=== PATIENT | male | born 1930 | race Caucasian/White ===

== ENCOUNTER 2017-08-11 08:03 | Emergency (ER) | payer MEDICARE, BC ==
[2017-08-11 08:28] LABS: #Eosinphils 0.1 thou/uL (0.0-0.7); #Monocytes 0.5 thou/uL (0.11-0.59); #Neutrophils 5.4 thou/uL (1.40-6.50); %Basophils 0.1 % (0.0-1.0); %Eosinophils 1.5 % (0.0-10.0); %Lymphocytes 14.8 % (21.0-51.0); %Monocytes 6.4 % (0.0-10.0); %Neutrophils 77.2 % (42.0-75.0); Hemoglobin 14.4 g/dL (14.0-18.0); Mean Corpuscular HGB CONC 32.3 g/dL (32.0-36.0); Mean Corpuscular Hemoglobin 28.5 pg (27.0-31.0); Mean Corpuscular Volume 88.1 fl (80.0-94.0); Mean Platelet Volume 8.6 fL (7.4-10.4); Platelet Count 151 thou/uL (130-400); Red Blood Cell (RBC) Count 5.06 mill/uL (4.70-6.10); White Blood Cell (WBC) Count 6.9 thou/uL (4.8-10.8)
[2017-08-11 08:46] LABS: ALT (SGPT) 11 U/L (8-55); AST (SGOT) 13 U/L (5-34); Albumin 3.8 g/dL (3.4-4.8); Alkaline Phosphatase 89 U/L (40-150); Anion Gap 11 mmol/L (10-20); BUN (Urea Nitrogen) 34 mg/dL (8.4-25.7); Bilirubin, Total 0.7 mg/dL (0.2-1.2); Calc. Creatinine Clearance 0 mL/min (70-130); Calcium 10.4 mg/dL (7.8-10.44); Carbon Dioxide 26 mmol/L (23-31); Chloride 108 mmol/L (98-107); Estimated GFR-MDRD 45; Globulin 3.1 g/dL (2.4-3.5); Glucose 173 mg/dL (83-110); Protein, Total 6.9 g/dL (5.8-8.1); Sodium 140 mmol/L (136-145)
[2017-08-11 08:51] LABS: Troponin I 0.138 ng/mL (< 0.028)
[2017-08-11] MEDS ORDERED: Enoxaparin Sodium 80 MG/0.8 ML SYRINGE ONE (09:18)
--- NOTE | 2017-08-11 09:26 | RAD ---
CHEST 1 VIEW: Date: 08/11/17 HISTORY: Pain. COMPARISON: None. FINDINGS: Portable upright chest demonstrates a left-sided transvenous defibrillator with lead position in righ t atrium, right ventricle, and coronary sinus. There is atherosclerosis of aorta. Heart is enlarged. Pulmonary vessels are within normal limits. Chronic changes in the lung parenchyma are suspected. No consolidation or mass. No pneumothorax or osseous abnormalities. IMPRESSION: 1. Atherosclerosis. 2. Cardiomegaly without evidence of congestive heart failure. POS: [facility]
== END 2017-08-11 11:10 | disposition short-term general hospital (02) ==
LOC: ERS 08:03
DX: R07.9 Chest pain, unspecified (principal); R79.89 Other specified abnormal findings of blood chemistry; I48.91 Unspecified atrial fibrillation; I95.9 Hypotension, unspecified; I11.0 Hypertensive heart disease with heart failure; I50.9 Heart failure, unspecified; Z79.891 Long term (current) use of opiate analgesic; Z79.82 Long term (current) use of aspirin; Z79.899 Other long term (current) drug therapy
CPT/HCPCS: 36415; 71045; 80053; 82553; 84484; 85025; 93005; 96360; 96361; 96372; J1650

== ENCOUNTER 2017-12-04 08:24 | Inpatient (IN) | payer MEDICARE, BC ==
[2017-12-04 08:42] LABS: #Lymphocytes 0.9 thou/uL (1.20-3.40); #Monocytes 0.8 thou/uL (0.11-0.59); #Neutrophils 9.4 thou/uL (1.40-6.50); %Eosinophils 0.4 % (0.0-10.0); %Lymphocytes 8.4 % (21.0-51.0); %Monocytes 6.9 % (0.0-10.0); %Neutrophils 84.3 % (42.0-75.0); Hemoglobin 14.1 g/dL (14.0-18.0); Mean Corpuscular HGB CONC 31.8 g/dL (32.0-36.0); Mean Corpuscular Hemoglobin 27.5 pg (27.0-31.0); Mean Corpuscular Volume 86.3 fL (78.0-98.0); Mean Platelet Volume 9.7 fL (7.4-10.4); Platelet Count 254 thou/uL (130-400); RBC Distribution Width 15.9 % (11.5-14.5); Red Blood Cell (RBC) Count 5.12 mill/uL (4.70-6.10); White Blood Cell (WBC) Count 11.1 thou/uL (4.8-10.8)
[2017-12-04] MEDS ORDERED: Magnesium 2 GM/NS 0.9% 100 ML 2 GM in Premix Bag 1 BAG IVPB SCH (08:45)
[2017-12-04 08:50] LABS: INR-International Normal Ratio 1.3; Prothrombin Time 16.5 SEC (12.0-14.7)
--- NOTE | 2017-12-04 08:56 | RAD ---
CHEST 1 VIEW: Date: 12/04/17 HISTORY: Dyspnea. senior care patient. COMPARISON: 08/11/17. FINDINGS: Single view chest demonstrates a stable left-sided defibrillator. Overlying pacing pads are noted. He art is enlarged. Pulmonary vessels are prominent. Chronic changes of the lung parenchyma, without con solidation or mass. Small left-sided effusion or parenchymal changes in the left lung base cannot be excluded. No pneumothorax. Evaluation of left lung apex is limited. IMPRESSION: 1. Atherosclerosis. 2. Enlarged cardiac silhouette with enlarged pulmonary vessels. Correlate for failure. 3. Opacification left lung base suggesting pleural and parenchymal changes. Continue surveillance. POS: [facility]
[2017-12-04 09:04] LABS: ALT (SGPT) 164 U/L (8-55); AST (SGOT) 73 U/L (5-34); Albumin 3.4 g/dL (3.4-4.8); Alkaline Phosphatase 157 U/L (40-150); Anion Gap 17 mmol/L (10-20); BUN (Urea Nitrogen) 20 mg/dL (8.4-25.7); Bilirubin, Total 1.1 mg/dL (0.2-1.2); CK (CPK) 129 U/L (30-200); Calc. Creatinine Clearance 0 mL/min (70-130); Calcium 10.2 mg/dL (7.8-10.44); Carbon Dioxide 20 mmol/L (23-31); Chloride 106 mmol/L (98-107); Estimated GFR-MDRD 32; Globulin 2.5 g/dL (2.4-3.5); Glucose 236 mg/dL (83-110); Potassium 4.3 mmol/L (3.5-5.1); Protein, Total 5.9 g/dL (5.8-8.1); Sodium 139 mmol/L (136-145)
[2017-12-04 09:10] LABS: Troponin I 0.164 ng/mL (< 0.028)
[2017-12-04 09:13] LABS: CKMB 9.7 ng/mL (0-6.6)
[2017-12-04] MEDS ORDERED: Acetaminophen 325 MG TAB PO PRN (10:15)
[2017-12-04] MEDS ORDERED: Ondansetron HCl/PF 4 MG/2 ML Vial IVP PRN (10:15)
[2017-12-04] MEDS ORDERED: Ondansetron ODT 4 MG TAB SL PRN (10:15)
[2017-12-04] MEDS ORDERED: Amiodarone HCl 450 MG, Admixture Fee 1 EACH in Dextrose 5% in Water 250 ML IVPB SCH (10:45)
[2017-12-04] MEDS ORDERED: Amiodarone HCl 150 MG, Admixture Fee 1 EACH in Dextrose 5% in Water 100 ML IVPB SCH (10:45)
[2017-12-04] MEDS ORDERED: Bisacodyl 5 MG TAB PO PRN (11:33)
[2017-12-04] MEDS ORDERED: Amiodarone In Dextrose 200 ML IVPB SCH (11:45)
[2017-12-04 12:32] VITALS: BMI 21.4
[2017-12-04] MEDS ORDERED: Dextrose 50% Abboject 50 ML SYRINGE SLOW IVP PRN (12:35)
[2017-12-04] MEDS ORDERED: HumaLOG 300 UNITS/3 ML VIAL SC PRN (12:35)
[2017-12-04] MEDS ORDERED: Dextrose 5% in Water 1,000 ML IV PRN (12:35)
[2017-12-04 12:49] LABS: Troponin I 0.177 ng/mL (< 0.028)
[2017-12-04] MEDS ORDERED: Furosemide 20 MG/2 ML VIAL SLOW IVP SCH (14:00)
--- NOTE | 2017-12-04 15:01 | SS ---
PRIMARY CARE PROVIDER: John Sarah M.D. CHIEF COMPLAINT: Shortness of breath. HISTORY OF PRESENT ILLNESS: Mr. Brunson is a pleasant 87-year-old gentleman who was seen at [facility] on 12/04/2017 following transfer from his group home. The patient complains of 1 month history of shortness of breath. He reports that it got worse this morning. He reports that he is not very active at his baseline and uses a wheelchair for transport. He denies any orthopnea. He denies any chest pain. He denies any abdominal pain. He denies any cough, fevers or chills. REVIEW OF SYSTEMS: All other systems reviewed and found to be negative. PAST MEDICAL HISTORY: Significant for diastolic heart failure, diabetes mellitus type 2, hypertension, paroxysmal atrial fibrillation, dyslipidemia, orthostatic hypotension, and colon cancer. PAST SURGICAL HISTORY: Pacemaker/AICD placement and colon cancer surgery. SOCIAL HISTORY: The patient denies any current tobacco use, alcohol use or recreational drug use. CODE STATUS: I discussed his code status. He is FULL CODE. His daughter, Erika is the medical power of packing machine can feeder. ALLERGIES: CIPROFLOXACIN and SULFA. CURRENT MEDICATIONS: Aspirin 81 mg daily, atorvastatin 40 mg daily, metoprolol succinate 25 mg daily, glimepiride 4 mg 2 times a day, Eliquis 2.5 mg 2 times a day, midodrine 2.5 mg 2 times a day, Coenzyme Q10 of 100 mg 2 times a day, vitamin D3 of 1000 units daily, Plavix 75 mg daily, Tradjenta 5 mg daily, furosemide 20 mg 2 times a day, magnesium oxide 400 mg 3 times a day. FAMILY HISTORY: No family history of premature coronary artery disease. PHYSICAL EXAMINATION: GENERAL: Mr. Brunson is awake and alert, not in acute distress. VITAL SIGNS: Blood pressure is 94/63, pulse 103, respiratory rate 24, and oxygen saturation 100% on 2 liters of oxygen. He is afebrile. EYES: No scleral icterus. No conjunctival pallor. ENT: Moist mucosal membranes, no oropharyngeal erythema or exudates. NECK: Supple, nontender. Trachea is midline. RESPIRATORY: Accessory muscles of breathing are not active. Chest wall movements are symmetric bilaterally. Lung examination reveals a few bibasilar crackles. CARDIOVASCULAR: S1 and S2 are heard, tachycardic and regular. Peripheral pulses palpable. No carotid bruit, no pericardial rub. ABDOMEN: Soft, nontender, bowel sounds heard, no hepatomegaly, no splenomegaly. NEUROLOGIC: Cranial nerves II-XII intact, deep tendon reflexes 2+. MUSCULOSKELETAL: Power is 5/5 in all 4 extremities. SKIN: Trace lower extremity edema. LYMPHATIC: No cervical lymphadenopathy. PSYCHIATRIC: Normal mood, normal affect, patient is oriented to person, place, and time. LABORATORY DATA: Mr. Brunson' labs and investigations were reviewed. I reviewed his electrocardiogram, which shows wide complex tachycardia. I also reviewed the rhythm strips, where he had wide complex tachycardia. He also has an electronic paced rhythm. I also reviewed his chest x-ray, which shows cardiomegaly and pulmonary vascular congestion. He has leukocytosis with 11, 100 white cells, of which 84% are neutrophils, INR 1.3, normal hemoglobin, normal platelet count, normal sodium, normal potassium, normal blood urea nitrogen, elevated creatinine of 2.01, last known creatinine 1.40 on 10/26/2017 , elevated AST of 73, elevated ALT of 164, elevated alkaline phosphatase of 157 , normal total bilirubin, indeterminate troponin I of 0.164 and elevated BNP of 2659. ASSESSMENT AND PLAN: Mr. Brunson is a pleasant 87-year-old gentleman who was seen at [facility] on 12/04/2017. His problem list includes: 1. Shortness of breath: Etiology unclear, likely a combination of congestive heart failure exacerbation as well as a wide complex tachycardia. Patient to be admitted to hospital for further management. 2. Congestive heart failure exacerbation: Patient to receive diuretics. We will start with low dose of furosemide given his hypotension. We will consult Cardiology Service and obtain 2D echocardiogram. 3. Wide complex tachycardia: Patient has been started on amiodarone in the emergency room. The Cardiology Service is being consulted for opinion and help with further management. 4. Diabetes mellitus type 2. The patient to be started on Accu-Cheks and insulin sliding scale. 5. Paroxysmal atrial fibrillation. We will continue Eliquis and a beta- gloria. 6. Dyslipidemia: Continue statin. 7. Orthostatic hypotension: Continue midodrine. 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 Transfer process was initiated and I have discussed with the Hospitalist at the [facility] and updated him regarding the clinical course so far. The patient will be transferred to [facility] when bed is available. Many thanks for allowing me to participate in your patient's care. Please feel free to contact me with any questions or concerns. LEVEL OF RISK: High. LEVEL OF COMPLEXITY: High. DISCHARGE DESTINATION: [facility]. ADRIANNE
[2017-12-04 15:06] LABS: Troponin I 0.193 ng/mL (< 0.028)
--- NOTE | 2017-12-10 13:19 | EKG ---
Test Reason : SOB Blood Pressure : / mmHG Vent. Rate : 107 BPM Atrial Rate : 107 BPM P-R Int : 000 ms QRS Dur : 146 ms QT Int : 400 ms P-R-T Axes : 000 -42 120 degrees QTc Int : 534 ms Undetermined rhythm Left axis deviation Left bundle branch block Multiple Premature ventricular complexes Confirmed by CARLITO MORLEY ([id number]), editorial project manager MANPREET FREEMAN ([id number]) on 12/10/2017 1:19:23 PM Referred By: Confirmed By:CARLITO MORLEY
== END 2017-12-04 15:23 | disposition short-term general hospital (02) | DRG 292 ==
LOC: ERS 08:24 → CCU 11:50
PROVIDERS: ADMIT Internal Medicine; ATTEND Internal Medicine
DX: I11.0 Hypertensive heart disease with heart failure (principal); I47.2 Ventricular tachycardia; I50.33 Acute on chronic diastolic (congestive) heart failure; I48.0 Paroxysmal atrial fibrillation; E11.9 Type 2 diabetes mellitus without complications; E78.5 Hyperlipidemia, unspecified; Z95.810 Presence of automatic (implantable) cardiac defibrillator; Z85.038 Personal history of other malignant neoplasm of large intestine; Z79.01 Long term (current) use of anticoagulants; Z79.84 Long term (current) use of oral hypoglycemic drugs; Z79.82 Long term (current) use of aspirin; Z88.1 Allergy status to other antibiotic agents; Z88.2 Allergy status to sulfonamides
CPT/HCPCS: 36415; 71045; 80053; 82553; 83880; 84484; 85025; 85610; 85730; 93005; 93306; 94760; 96365; 96367; 96376; J0282; J1940; J3475; J7070